=== PATIENT | female | born 1960 | race Caucasian/White ===

== ENCOUNTER 2019-04-06 09:21 | Day surgery (SDC) | payer OTHER ==
[~2019-04-06] VITALS: Ht 154.9 cm; Wt 79.8 kg
== END 2019-04-06 10:45 | disposition home or self-care (01) ==
LOC: MOR 09:21 → MMU 09:28 → MOR 10:45
PROVIDERS: ATTEND Surgery
DX: C50.912 Malignant neoplasm of unspecified site of left female breast (principal); Z53.8 Procedure and treatment not carried out for other reasons
CPT/HCPCS: 71045; 93005; J0690; J7060; J7120

== ENCOUNTER 2021-10-01 07:24 | Day surgery (SDC) | payer OTHER ==
[~2021-10-01] VITALS: Ht 157.5 cm; Wt 79.8 kg
[2021-10-01] MEDS ORDERED: BUPIVACAINE-MPF 0.25% 30 ML VIAL INJ ONE (12:44)
[2021-10-01] MEDS ORDERED: LIDOCAINE MPF 1% 5 ML ONE (12:45)
[2021-10-01] MEDS ORDERED: DESFLURANE 240 ML BTL INH ONE (12:50)
[2021-10-01] MEDS ORDERED: ONDANSETRON 4 MG/2 ML VIAL ONE (12:55)
[2021-10-01] MEDS ORDERED: PROPOFOL 200 MG/20 ML VIAL IV ONE (12:55)
[2021-10-01] MEDS ORDERED: fentaNYL citrate 0.05 MG/ML VIAL ONE (12:56)
[2021-10-01] MEDS ORDERED: KETOROLAC 30 MG/ML VIAL ONE (12:56)
[2021-10-01] MEDS ORDERED: ACET-8386 PO (13:59)
[2021-10-01] MEDS ORDERED: HYDROcodone/APAP 5/325 MG 1 TAB TAB PO PRN (14:00)
[2021-10-01] MEDS ORDERED: HYDROmorphone 1 MG/ML AMP IVP PRN (14:00)
[2021-10-01] MEDS ORDERED: MORPHINE SULFATE 4 MG/ML SYR IV PRN (14:00)
[2021-10-01] MEDS ORDERED: MORPHINE SULFATE 2 MG/ML SYR IVP PRN (14:00)
[2021-10-01] MEDS ORDERED: ONDANSETRON 4 MG/2 ML VIAL IV PRN (14:00)
== END 2021-10-01 15:35 | disposition home or self-care (01) ==
LOC: MDS 07:24 → MMU 07:25 → MDS 15:35
PROVIDERS: ATTEND Surgery
DX: C50.912 Malignant neoplasm of unspecified site of left female breast (principal); C50.312 Malignant neoplasm of lower-inner quadrant of left female breast; Z79.899 Other long term (current) drug therapy; Z20.822 Contact with and (suspected) exposure to COVID-19
CPT/HCPCS: 36415; 36561; 71045; 76000; 76937; 77001; 86886; 86900; 86901; 87426; C1788; J0690; J1644; J1885; J2001; J2405; J2704; J3010; J3490; J7030; J7060; Q0092; 77003